=== PATIENT | female | born 1955 | race Caucasian/White ===

== ENCOUNTER 2022-09-25 11:01 | Day surgery (SDC) | payer OTHER ==
[2022-09-24 14:29] LABS: Hematocrit 38.2 % (36.0-45.0); Lymphocytes % 28.7 % (15.3-44.8); MCV 99.1 fL (80-100); MPV 6.8 fL (7.6-11.3); RBC Red Blood Cell Count 3.85 M/uL (3.86-4.86)
[2022-09-24 14:33] LABS: Potassium 4.4 mmol/L (3.5-5.1)
--- NOTE | 2022-09-24 14:51 | RAD REPORT ---
EXAM DESCRIPTION: RAD - Chest Pa And Lat (2 Views) - 09/24/2022 2:18 pm CLINICAL HISTORY: pre op COMPARISON: Abdomen 1 View (KUB) dated 03/20/2019 FINDINGS: Lines: None. Lungs: No evidence of edema or pneumonia. Pleural: No significant pleural effusions or pneumothorax. Cardiac: The heart size is within normal limits. Mediastinum: Within normal limits. Bones: No acute fractures. Other: None IMPRESSION: No acute cardiopulmonary disease.
[~2022-09-25 11:01] MED LIST: ASPIRIN 325 MG TAB ONE; ATROPINE SULF 1 MG/10 ML SYR IV ONE; CLOPIDOGREL 75 MG TABLET ONE; FENTANYL CITR 100 MCG/2 ML ONE; HEPARIN 10,000 UNIT/10 ML VIAL IV ONE; HEPARIN 5000 UNIT/ML 1 ML VIAL ONE; MIDAZOLAM HCL 2 MG/2 ML INJ ONE; TICAGRELOR 90 MG TABLET PO ONE; VERAPAMIL HCL 10 MG/4 ML VIAL IV ONE
[2022-09-25] MEDS ORDERED: NA CHLORIDE 0.9% 500 ML ONE (11:03)
[2022-09-25] MEDS ORDERED: HEPA 1000U/500MLS 2,000 UNIT/1,000 ML BAG IV ONE (11:13)
[2022-09-25] MEDS ORDERED: LIDOCAINE 1% 20 ML MDV ONE (11:13)
--- NOTE | 2022-09-25 14:44 | OP ---
Date of Procedure: 09/25/2022 Surgeon: NAVNEET GANNON Procedure Performed: Selective coronary angiogram. Indication: V-tach, exertional. Access: Right radial artery 6-Honduran closed with TR band. Complications: None. Bleeding: Less than 10 mL. Anesthesia: Total sedation time was 25 minutes. Used fentanyl and Versed. Description Of Procedure: After risks, benefits, alternatives were explained, the patient agreed to the procedure and signed informed consent. The patient was brought into the cardiac catheterization laboratory, prepped and draped in the usual sterile fashion. Then, we accessed right radial artery u sing pediatric micropuncture, placed 6-Honduran Slender sheath, took a 5-Honduran Morris 4.0 catheter into the aortic root, engaged left main and then right coronary artery, and took standard views and then removed the catheter and sheath, placed TR band with good hemostasis. Findings: 1.Left main; large and normal. 2.LAD; it is large size vessel with proximal 40% long stenosis and after diagonal 2, there is also a long 50% stenosis. 3.Left circumflex; very large and dominant, 20% proximal stenosis. No other disease. 4.RCA; it is codominant circulation with proximal 20% and mid 50%, otherwise normal. Conclusion: [id number] coronary artery disease. Plan: Medical management. SR/MODL Voice ID: [id number] Report ID: [id number]
[2022-09-25 15:10] VITALS: BP 130/54; O2SAT 98
== END 2022-09-25 14:55 | disposition home or self-care (01) ==
LOC: CCL 11:01
PROVIDERS: ATTEND Internal Medicine
DX: I25.10 Atherosclerotic heart disease of native coronary artery without angina pectoris (principal); I47.20 Ventricular tachycardia, unspecified; I10 Essential (primary) hypertension; E11.9 Type 2 diabetes mellitus without complications; E78.5 Hyperlipidemia, unspecified; I73.9 Peripheral vascular disease, unspecified; Z79.899 Other long term (current) drug therapy
CPT/HCPCS: 85025; 80048; 36415; 85610; 82947; 85730; 71046; 93454; 76937; C1893; Q9966; J2001; J1644 ×2; J2250; J3010; J7040; J0461